=== PATIENT | female | born 1995 | race Caucasian/White ===

== ENCOUNTER 2019-07-25 05:59 | Emergency (ER) | payer MEDICAID ==
[~2019-07-25] VITALS: Ht 162.6 cm; Wt 63.5 kg
[2019-07-25 06:06] VITALS: BP 108/62
--- NOTE | 2019-07-25 06:15 | NUR ---
SEEN AND EXAMINED BY .
--- NOTE | 2019-07-25 06:20 | NUR ---
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
[2019-07-25] MEDS ORDERED: IBUPROFEN 600 MG TABLET PO ONE ×2 (06:22→06:30)
--- NOTE | 2019-07-25 07:45 | NUR ---
Patient discharged to home in stable condition. Written and verbal after care instructions given. Patient verbalizes understanding of instruction.
== END 2019-07-25 07:48 | disposition home or self-care (01) ==
LOC: ER 06:03
DX: S52.692A Other fracture of lower end of left ulna, initial encounter for closed fracture (principal); F17.200 Nicotine dependence, unspecified, uncomplicated; W05.1XXA Fall from non-moving nonmotorized scooter, initial encounter; Y93.I9 Activity, other involving external motion; Y92.89 Other specified places as the place of occurrence of the external cause; Y99.8 Other external cause status
CPT/HCPCS: 73080-TC; 73090-TC; 73110